=== PATIENT | male | born 2005 | race Two or more races ===

== ENCOUNTER 2025-07-21 09:49 | Emergency (ER) | payer MEDICAID, SELFPAY ==
[2025-07-21 10:06] VITALS: BP 138/88; PULSE 67; RESP 16; TEMP 36.9; O2SAT 99; BMI 32.4
--- NOTE | 2025-07-21 10:15 | EKG_ITS ---
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
--- NOTE | 2025-07-21 10:15 | XR_ITS ---
EXAMINATION: PA lateral chest 2 views TECHNIQUE: Upright PA lateral chest 2 views Date and time: July 21, 2025, 10:34 a.m. INDICATIONS: Chest pain 3 days FINDINGS: Normal heart size Lungs are clear. Osseous structures intact IMPRESSION: No active disease
[2025-07-21 10:58] LABS: Collection Type, Urine Clean Catch
[2025-07-21 11:39] LABS: Basophils # (Auto) 0.0 Thou/mm3 (0.0-0.2); Basophils % (Auto) 0 % (0-2.5); Eosinophils # (Auto) 0.1 Thou/mm3 (0.0-0.5); Eosinophils % (Auto) 1 % (0-10); Hematocrit 45.1 % (41.0-53.0); Hemoglobin 15.5 g/dL (13.5-16.0); Immature Granulocytes Auto 0.07 Thou/mm3 (0.00-0.00); Lymphocytes # (Auto) 3.2 Thou/mm3 (1.0-4.8); Lymphocytes % (Auto) 34 % (10-50); Mean Corpuscular HGB Conc 34.4 g/dl (31.0-37.0); Mean Corpuscular Hemoglobin 28.9 pg (25.0-35.0); Mean Corpuscular Volume 84 fL (80-100); Monocytes # (Auto) 0.7 Thou/mm3 (0.0-0.8); Monocytes % (Auto) 7 % (0-12); Neutrophils # (Auto) 5.6 Thou/mm3 (1.8-7.7); Neutrophils % (Auto) 58 % (37-80); Nucleated Red Blood Cell # 0.00 Thou/mm3 (0.00-0.00); Nucleated Red Blood Cell % 0 /100 WBC (0); Platelet Count 321 Thou/mm3 (140-440); RDW Standard Deviation 37.1 fL (35.1-43.9); Red Blood Count 5.37 Miln/mm3 (4.50-5.90); White Blood Count 9.7 Thou/mm3 (3.8-10.6)
[2025-07-21 11:48] LABS: Alanine Aminotransferase 122 U/L (10-49); Albumin, Serum 4.9 gm/dL (3.5-5.0); Albumin/Globulin Ratio 1.8 (1.2-2.2); Alkaline Phosphatase 91 U/L (46-116); Anion Gap 10 (7-16); Aspartate Amino Transferase 50 U/L (0-34); BUN/Creatinine Ratio 9 Ratio (12-20); Bilirubin,Total 0.5 mg/dL (0.3-1.2); Blood Urea Nitrogen 9 mg/dL (9-23); Calcium 9.7 mg/dL (8.3-10.6); Calcium (Corrected) 9.7 mg/dL (8.5-10.1); Carbon Dioxide 26.4 mMol/L (20.0-31.0); Chloride 103 mMol/L (98-107); Creatinine (Component) 1.0 mg/dL (0.6-1.3); Estimated Creatinine Clearance 140.2 mL/min (>60); Globulin 2.8 gm/dL (2.3-3.5); Glucose 100 mg/dL (74-106); Osmolality,Calculated 276 (275-295); Potassium 4.2 mMol/L (3.4-5.1); Sodium 139 mMol/L (136-145); Total Protein 7.7 gm/dL (5.7-8.2); Troponin I < 0.002 ng/mL (0.0-0.045); eGFR > 60 See Note
[2025-07-21 11:50] LABS: Bilirubin,Urine Negative (Negative); Blood,Urine Negative (Negative); Clarity,Urine Clear (Clear/Hazy); Color,Urine Lt-Yellow (Lt Yel-Yel); Glucose, Urine Negative (Negative); Ketones,Urine Negative (Negative); Leukocyte Esterase,Urine Negative (Negative); Nitrite,Urine Negative (Negative); PH,Urine 6.0 (5.0-7.0); Protein,Urine Negative (Neg - Trace); RBC,Urine 2 /hpf (0-3); Specific Gravity,Urine 1.021 (1.001-1.035); Squamous Epithelial Cell,Urine 1 /hpf (0-5); Urobilinogen,Urine Negative mg/dL (0.0-1.0); WBC,Urine < 1 /hpf (0-5)
[2025-07-21 11:54] LABS: B-Type Natriuretic Peptide < 0 pg/mL (0-100)
[2025-07-21 12:06] LABS: Amphetamine/Methamp Scrn,U Negative (Negative); Barbiturate Screen,Urine Negative (Negative); Benzodiazepines Screen,Urine Negative (Negative); Benzoylecgonine Screen, Ur Negative (Negative); Fentanyl Screen,Urine Negative (Negative); Opiate Screen,Urine Negative (Negative); THC Screen,Urine Negative (Negative)
--- NOTE | 2025-07-21 12:34 | PD.EDCHEST ---
ED Chest Pain RME/HPI General Chief Complaint: Chest Pain Stated Complaint: LEFT CHEST PAIN TIMES 2 DAYS Time Seen by Provider: 07/21/25 10:10 Arrival date/time: 07/21/25 09:49 Limitations: no limitations RME / HPI RME / HPI narrative: 28-year-old male poor historian states he has only 1 kidney reports was told it melted when he was a kid having appendicitis. Here for 2 days of chest pain states it will not go away. But all he can take is Tylenol. Denies cocaine or other drugs states he did take alcohol last night but reports only 1 beer. No shortness of breath. No fever no vomiting. Related Data Home Medications ?Medication ?Instructions ?Recorded ?Confirmed Acetaminophen * (TYLENOL *) 1 tab PO Q4-6HRPRN PRN PAIN #0 tabs 02/03/17 Allergies Allergy/AdvReac Type Severity Reaction Status Date / Time aspirin Allergy Severe KIDNEY Verified 02/03/17 10:17 ibuprofen Allergy Severe KIDNEY Verified 02/03/17 10:17 Review of Systems Review of Systems Systems Reviewed: All systems reviewed, normal except as documented Constitutional Constitutional: Denies fever(s) Cardiovascular Cardiovascular: Reports as per HPI ED Exam General Limitations: Present no limitations General appearance: Present alert and in no apparent distress Eye Eye exam: Present normal appearance, PERRL and EOMI Chest Chest inspection: Present normal inspection, symmetric chest wall rise and tenderness (ttp left chest wall ) Respiratory Respiratory exam: Present normal lung sounds bilaterally Cardiovascular Cardiovascular exam: Present regular rate, normal rhythm and normal heart sounds Abdominal Exam Abdominal exam: Present soft and normal bowel sounds Extremities Exam Extremities exam: Present normal inspection and full ROM Back Exam Back exam: Present normal inspection and full ROM Psychiatric Psychiatric exam: Present normal affect and normal mood Skin Skin exam: Present warm, dry, intact and normal color Course Quality Measures none Orders Category Date Time Status EKG (ED ONLY) *Do not use* NOW Care 07/21/25 10:15 Completed EKG (ED Only) Stat Exams 07/21/25 10:15 Draft XR chest 2V Stat Exams 07/21/25 10:15 Completed BNP [B-Type Natriuretic Peptide] Stat Lab 07/21/25 10:56 Completed CBC Stat Lab 07/21/25 10:56 Completed CMP [Comprehensive Metabolic Panel] Stat Lab 07/21/25 10:56 Completed Drug Screen,Urine Stat Lab 07/21/25 10:50 Completed Troponin I Stat Lab 07/21/25 10:56 Completed UA [Urinalysis] Stat Lab 07/21/25 10:50 Completed ALPRazoLAM [Xanax] Med 07/21/25 10:16 Discontinued 1 mg PO X1 ONE Vital Signs Vital signs: Vital Signs Temperature 98.4 F 07/21/25 10:06 Pulse Rate 67 07/21/25 10:06 Respiratory Rate 16 07/21/25 10:06 Blood Pressure 138/88 H 07/21/25 10:06 Pulse Oximetry (%) 99 07/21/25 10:06 Oxygen Delivery Method Room Air 07/21/25 10:06 PROCEDURES: EKG Interpretation #1: Date of EK07/21/25 Time of EK:22 Rate: 73 Interpretation: Interpreted by me EKG Impression: Normal sinus rhythm and No acute ST-T changes Additional EKG comment: No prior for comparison Chest Pain Patient data External records reviewed:: [facility] previous records Clinical information provided by:: patient and family Social determinants that could affect healthcare access:: other (specify) Patient has the following chronic illnesses:: Presence of only 1 kidney How is presenting disease/condition affected by chronic disease/condition?: uneffected by Evaluation data The following diagnostics were reviewed and interpreted by me:: lab results and radiology exam(s) Lab and/or radiology exams considered but not ordered:: CT of chest was considered however unlikely to change the course of treatment given age Interpretation Summary: CBC within normal limits CMP within normal limits other than elevated liver enzymes, negative drugs normal troponin normal BNP normal EKG normal chest x-ray Medications / Prescriptions Medications or Prescriptions considered but not ordered:: Medications for home were considered however side effect risk worse than issue Medication administrations:: Medication Administration History Discontinued Medications Alprazolam (Alprazolam 0.25 Mg Tablet) 1 mg PO X1 ONE Stop: 07/21/25 10:17 Last Admin: 07/21/25 10:33 Dose: 1 mg Documented By: LT See above Consultations Consultation(s) initiated? (list below): No Diagnosis Chest Pain Differential Diagnosis: fracture of rib, pneumothorax, unstable angina pectoris, atypical chest pain, costochondritis, chest pain and biliary colic Most likely diagnosis given after review of the tests above:: Atypical chest pain Admission Indicated Admission indicated?: not indicated Admission Request Was there a request for admission?: No Disposition Plan Disposition Plan: Discharge Discharge Attestation Discharge Attestation: The patient and all family members were given an opportunity to ask questions and understood the discharge instructions. Discharge instructions specifically effects, indications for sooner follow up or return to the emergency department, and the expected course of current diagnosis. Patient condition: Stable Discharge Plan Plan Patient Disposition: HOME (Self Care) Discharge Disposition comment: Follow-up with PCP in 2 to 3 days Prescriptions/Referrals Prescriptions/Med Rec: No Action Acetaminophen * (TYLENOL *) 325 MG tablet 1 tab PO Q4-6HRPRN PRN (Reason: PAIN) Qty: 0 Patient Comments: FOR FEVER OR PAIN Referrals: No Primary/Family,Physician [Primary Care Provider] - In 1 week Problem List Clinical Impression: Atypical chest pain Patient/Caregiver Discharge Instructions Education Materials: ED Chest Pain, Noncardiac Print Language: Citizen Of [place] Stand Alone Forms: Mattie Award Info., Patient Portal Info Letter PA/MAMIE Supervising Physician PA/STUDENT SERVICES REP Supervising Physician: Dr. Nichole
== END 2025-07-21 12:48 | disposition home or self-care (01) ==
PROVIDERS: Physician Assistant; Emergency Provider Emergency Medicine
DX: R07.89 Other chest pain (principal); I49.8 Other specified cardiac arrhythmias; R74.8 Abnormal levels of other serum enzymes
CPT/HCPCS: 36415; 71046; 80053; 80307; 81001; 83880; 84484; 85025; 93005; 99283; A9270